=== PATIENT | female | born 1940 | race Caucasian/White ===

== ENCOUNTER 2019-03-07 11:21 | Emergency (ER) | payer MEDICARE, BC ==
[2019-03-07 11:34] VITALS: BP 150/56
--- NOTE | 2019-03-07 11:58 | EDM.PDOC ---
ED HPI GENERAL MEDICAL PROBLEM - General Chief Complaint: Upper Extremity Injury/Pain Stated Complaint: POST SURGERY LT WRIST PAIN Time Seen by Provider: 03/07/19 11:31 Source of Information: Reports: Patient History Limitations: Reports: No Limitations - History of Present Illness INITIAL COMMENTS - FREE TEXT/NARRATIVE: 78 y.o.w.f came to te ed due to pain at her left wrist and fingers 1-3. Pt underwent left wrist surgery last Friday due to Carpal Tunnel Symptoms. 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 No new trauma. Pt came to the ed for wound check. No N/V/D or any other acute medical issues. BP 150/56 Pulse 66 RR 14 Pulse ox 100% Temp 36.4 Onset Date: 02/26/19 Onset Time: 15:00 Duration: Day(s):, Intermittent Location: Reports: Upper Extremity, Left (wrist) Quality: Reports: Dull, Same as Previous Episode Severity: Mild Improves with: Reports: Rest Worsens with: Reports: Movement Context: Reports: Trauma (S/P Carpal tunnel Surgery) Associated Symptoms: Reports: No Other Symptoms left hand Pain Score (Numeric/FACES): 8 - Related Data Allergies Allergy/AdvReac Type Severity Reaction Status Date / Time No Known Allergies Allergy Verified 03/07/19 11:36 Home Meds: Home Meds Levothyroxine Sodium [Synthroid] 137 mcg PO DAILY 03/07/19 [History] cycloSPORINE [Restasis] 1 drop EYEBOTH BID PRN 03/07/19 [History] Social & Family History - Tobacco Use Smoking Status *Q: Never Smoker - Recreational Drug Use Recreational Drug Use: No Review of Systems - Review of Systems Review Of Systems: See Below Constitutional: Reports: No Symptoms Eyes: Reports: No Symptoms Ears: Reports: No Symptoms Nose: Reports: No Symptoms Mouth/Throat: Reports: No Symptoms Respiratory: Reports: No Symptoms Cardiovascular: Reports: No Symptoms GI/Abdominal: Reports: No Symptoms Genitourinary: Reports: No Symptoms Musculoskeletal: Reports: Other (left wrsit discomfort) Skin: Reports: Wound (surgical scar left wrist) Neurological: Reports: No Symptoms Psychiatric: Reports: No Symptoms ED EXAM, GENERAL - Physical Exam Exam: See Below Exam Limited By: No Limitations General Appearance: Alert, WD/WN, Mild Distress Eye Exam: Bilateral Eye: Normal Inspection Ears: Normal External Exam Ear Exam: Bilateral Ear: Auricle Normal Nose: Normal Inspection Throat/Mouth: Normal Inspection, Normal Lips, Normal Voice, No Airway Compromise Head: Atraumatic, Normocephalic Neck: Normal Inspection, Supple, Non-Tender, Full Range of Motion Respiratory/Chest: No Respiratory Distress, Lungs Clear, Normal Breath Sounds, No Accessory Muscle Use, Chest Non-Tender Cardiovascular: Normal Peripheral Pulses, Regular Rate, Rhythm, No Edema, No Gallop Peripheral Pulses: 1+: Brachial (L) GI/Abdominal: Normal Bowel Sounds (Female) Exam: Deferred Rectal (Female) Exam: Deferred Back Exam: Normal Inspection, Full Range of Motion Extremities: Normal Inspection, Non-Tender, No Pedal Edema, Normal Capillary Refill, Limited Range of Motion (left wrist due to pain S/P Surgery) Neurological: Alert, Oriented, CN II-XII Intact, Normal Cognition, Normal Gait Psychiatric: Normal Affect, Normal Mood Skin Exam: Warm, Dry, Wound/Incision (well healing surgical scar) Lymphatic: No Adenopathy Course - Vital Signs Text/Narrative:: 78 y.o.w.f came to te ed due to pain at her left wrist and fingers 1-3. Pt underwent left wrist surgery last Friday due to Carpal Tunnel Symptoms. 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 No new trauma. Pt came to the ed for wound check. No N/V/D or any other acute medical issues. BP 150/56 Pulse 66 RR 14 Pulse ox 100% Temp 36.4 PE: WNWD W F with left wrist discomfort after surgery, well healing wound, no erythema, no edema/selling. Same as it was before Surgery, not worse not better Impression: Wound check left wrist, well healing wound Tx: ICe. Pt said she can take Advil at home. Reexam: Pt did fine in the ED Plan: D/C with instructions Last Recorded V/S: Last Vital Signs Temp 36.4 C 03/07/19 11:29 Pulse 66 03/07/19 11:29 Resp 14 03/07/19 11:29 BP 150/56 H 03/07/19 11:29 Pulse Ox 100 03/07/19 11:29 Departure - Departure Time of Disposition: 11:55 Disposition: Home, Self-Care 01 Condition: Good Clinical Impression: Visit for wound check - Discharge Information Instructions: Open Carpal Tunnel Release, Care After Referrals: Fco Garcia MD [Primary Care Provider] - Forms: ED Department Discharge Additional Instructions: Please elevate left wrist, cont your meds, please f/u with Dr. Titus, please come back if your symptoms get worse acutely
== END 2019-03-07 12:00 | disposition home or self-care (01) ==
LOC: FB.ED 11:21
DX: Z48.811 Encounter for surgical aftercare following surgery on the nervous system (principal); Z98.890 Other specified postprocedural states
CPT/HCPCS: 99282

== ENCOUNTER 2022-04-22 08:41 | Emergency (ER) | payer MEDICARE, BC ==
[2022-04-22] MEDS ORDERED: Sodium Chloride 0.9% 10 ML Syringe FLUSH PRN (09:31)
[2022-04-22] MEDS ORDERED: traMADol 50 MG Tab PO STA (09:36)
[2022-04-22] MEDS ORDERED: Acetaminophen 500 MG Tab PO ONE ×2 (09:36→21:53)
[2022-04-22] MEDS ORDERED: Sodium Chloride 0.9% 1,000 ML IV SCH (09:45)
[2022-04-22 11:01] LABS: ESTIMATED GFR 33 (>60)
[2022-04-22 13:41] VITALS: BP 169/65; PULSE 79
[2022-04-22] MEDS ORDERED: Aspirin 81 MG Tab.Chew PO ONE (14:39)
== END 2022-04-22 22:00 ==
LOC: FB.ED 08:41
DX: R53.1 Weakness (principal); R77.8 Other specified abnormalities of plasma proteins; Z79.899 Other long term (current) drug therapy; Z79.82 Long term (current) use of aspirin
CPT/HCPCS: 36415; 70450; 71045; 72072; 72100; 73502; 80053; 81001; 82550; 84443; 84484; 85025; 93005; 96360; 99285; A9270; J3490; J7030; 93010; 99284

== ENCOUNTER 2022-04-25 10:43 | Inpatient (IN) | payer MEDICARE, BC ==
[2022-04-29] MEDS ORDERED: Ibuprofen 200 MG Tab PO SCH (15:00)
[2022-04-29] MEDS ORDERED: Benzocaine/Cetylpyridinium/Menthol Lozenge MUCMEM PRN (16:10)
[2022-04-29] MEDS ORDERED: oxyCODONE 5 MG Tab PO PRN (16:49)
[2022-04-29] MEDS: Gabapentin 300 MG Cap PO SCH ×2 (17:29→22:08)
[2022-04-29] MEDS: Acetaminophen 500 MG Tab PO SCH ×2 (17:29→21:58)
[2022-04-29] MEDS: Ibuprofen 400 MG Tab PO SCH ×2 (17:32→21:57)
[2022-04-29] MEDS: Sodium Bicarbonate 650 MG Tab PO SCH (21:57)
[2022-04-29] MEDS: Polyvinyl Alcohol 1.4% Ophth Soln 15 ML Bottle EYEBOTH SCH (21:58)
[2022-04-29] MEDS: Metoprolol Succinate 25 MG Tab.ER PO SCH (21:59)
[2022-04-30] MEDS: Polyvinyl Alcohol 1.4% Ophth Soln 15 ML Bottle EYEBOTH SCH ×2 (08:56→21:31)
[2022-04-30] MEDS: Aspirin 81 MG Tab.EC PO SCH (08:56)
[2022-04-30] MEDS: Ibuprofen 400 MG Tab PO SCH ×3 (08:57→21:31)
[2022-04-30] MEDS: Lisinopril 5 MG Tab PO SCH (08:58)
[2022-04-30] MEDS: Gabapentin 300 MG Cap PO SCH ×2 (08:58→14:19)
[2022-04-30] MEDS: Multivitamins with Iron/Calcium/Folic Acid/Minerals Tab PO SCH (08:59)
[2022-04-30] MEDS: Sodium Bicarbonate 650 MG Tab PO SCH ×3 (08:59→21:33)
[2022-04-30] MEDS: Acetaminophen 500 MG Tab PO SCH ×3 (09:00→21:33)
[2022-04-30] MEDS: Cholecalciferol (Vitamin D3) 25 MCG Tab PO SCH (09:01)
[2022-04-30] MEDS: Cyanocobalamin (Vitamin B12) 1,000 MCG Tab PO SCH (09:01)
[2022-04-30] MEDS: Lidocaine 4% 1 each Patch TOP SCH (09:16)
[2022-04-30] MEDS ORDERED: traMADol 50 MG Tab PO PRN (14:08)
[2022-04-30] MEDS: Gabapentin 100 MG Cap PO SCH ×2 (14:19→21:32)
[2022-04-30] MEDS: Metoprolol Succinate 25 MG Tab.ER PO SCH (21:33)
[2022-05-01] MEDS: Aspirin 81 MG Tab.EC PO SCH (08:53)
[2022-05-01] MEDS: Polyvinyl Alcohol 1.4% Ophth Soln 15 ML Bottle EYEBOTH SCH ×2 (08:53→20:50)
[2022-05-01] MEDS: Lidocaine 4% 1 each Patch TOP SCH (08:53)
[2022-05-01] MEDS: Ibuprofen 400 MG Tab PO SCH ×3 (08:54→20:51)
[2022-05-01] MEDS: Lisinopril 5 MG Tab PO SCH (08:54)
[2022-05-01] MEDS: Sodium Bicarbonate 650 MG Tab PO SCH ×3 (08:54→20:53)
[2022-05-01] MEDS: Acetaminophen 500 MG Tab PO SCH ×3 (08:55→20:54)
[2022-05-01] MEDS: Cyanocobalamin (Vitamin B12) 1,000 MCG Tab PO SCH (08:55)
[2022-05-01] MEDS: Cholecalciferol (Vitamin D3) 25 MCG Tab PO SCH (08:55)
[2022-05-01] MEDS: Multivitamins with Iron/Calcium/Folic Acid/Minerals Tab PO SCH (08:55)
[2022-05-01] MEDS: Gabapentin 100 MG Cap PO SCH ×3 (09:03→20:58)
[2022-05-01] MEDS ORDERED: traMADol 50 MG Tab PO PRN (10:00)
[2022-05-01] MEDS: traMADol 50 MG Tab PO SCH ×2 (10:33→13:00)
[2022-05-01] MEDS: Metoprolol Succinate 25 MG Tab.ER PO SCH (20:53)
[2022-05-02] MEDS: traMADol 50 MG Tab PO SCH ×2 (08:17→13:06)
[2022-05-02] MEDS: Polyvinyl Alcohol 1.4% Ophth Soln 15 ML Bottle EYEBOTH SCH ×2 (08:20→20:44)
[2022-05-02] MEDS: Lidocaine 4% 1 each Patch TOP SCH (08:20)
[2022-05-02] MEDS: Aspirin 81 MG Tab.EC PO SCH (08:20)
[2022-05-02] MEDS: Lisinopril 5 MG Tab PO SCH (08:21)
[2022-05-02] MEDS: Ibuprofen 400 MG Tab PO SCH ×3 (08:21→20:45)
[2022-05-02] MEDS: Sodium Bicarbonate 650 MG Tab PO SCH ×3 (08:22→20:49)
[2022-05-02] MEDS: Acetaminophen 500 MG Tab PO SCH ×3 (08:22→20:50)
[2022-05-02] MEDS: Multivitamins with Iron/Calcium/Folic Acid/Minerals Tab PO SCH (08:22)
[2022-05-02] MEDS: Cholecalciferol (Vitamin D3) 25 MCG Tab PO SCH (08:29)
[2022-05-02] MEDS: Cyanocobalamin (Vitamin B12) 1,000 MCG Tab PO SCH (08:29)
[2022-05-02] MEDS: Gabapentin 100 MG Cap PO SCH ×3 (10:20→20:56)
[2022-05-02] MEDS: Metoprolol Succinate 25 MG Tab.ER PO SCH (20:49)
[2022-05-03] MEDS: Gabapentin 100 MG Cap PO SCH ×3 (08:09→21:02)
[2022-05-03] MEDS: traMADol 50 MG Tab PO SCH ×2 (08:09→14:16)
[2022-05-03] MEDS: Ibuprofen 400 MG Tab PO SCH ×3 (08:10→20:52)
[2022-05-03] MEDS: Acetaminophen 500 MG Tab PO SCH ×3 (08:10→20:55)
[2022-05-03] MEDS: Polyvinyl Alcohol 1.4% Ophth Soln 15 ML Bottle EYEBOTH SCH ×2 (08:10→20:52)
[2022-05-03] MEDS: Lidocaine 4% 1 each Patch TOP SCH (08:10)
[2022-05-03] MEDS: Aspirin 81 MG Tab.EC PO SCH (08:10)
[2022-05-03] MEDS: Sodium Bicarbonate 650 MG Tab PO SCH ×3 (08:11→20:54)
[2022-05-03] MEDS: Lisinopril 5 MG Tab PO SCH (08:11)
[2022-05-03] MEDS: Multivitamins with Iron/Calcium/Folic Acid/Minerals Tab PO SCH (08:11)
[2022-05-03] MEDS: Cyanocobalamin (Vitamin B12) 1,000 MCG Tab PO SCH (08:11)
[2022-05-03] MEDS: Cholecalciferol (Vitamin D3) 25 MCG Tab PO SCH (08:11)
[2022-05-03] MEDS: Metoprolol Succinate 25 MG Tab.ER PO SCH (20:57)
[2022-05-04] MEDS: Cholecalciferol (Vitamin D3) 25 MCG Tab PO SCH (08:36)
[2022-05-04] MEDS: Lidocaine 4% 1 each Patch TOP SCH (08:36)
[2022-05-04] MEDS: traMADol 50 MG Tab PO SCH ×2 (08:36→13:08)
[2022-05-04] MEDS: Cyanocobalamin (Vitamin B12) 1,000 MCG Tab PO SCH (08:36)
[2022-05-04] MEDS: Multivitamins with Iron/Calcium/Folic Acid/Minerals Tab PO SCH (08:36)
[2022-05-04] MEDS: Aspirin 81 MG Tab.EC PO SCH (08:36)
[2022-05-04] MEDS: Ibuprofen 400 MG Tab PO SCH ×3 (08:36→20:49)
[2022-05-04] MEDS: Gabapentin 100 MG Cap PO SCH ×3 (08:36→21:16)
[2022-05-04] MEDS: Polyvinyl Alcohol 1.4% Ophth Soln 15 ML Bottle EYEBOTH SCH ×2 (08:36→20:48)
[2022-05-04] MEDS: Sodium Bicarbonate 650 MG Tab PO SCH ×3 (08:37→20:51)
[2022-05-04] MEDS: Acetaminophen 500 MG Tab PO SCH ×3 (08:37→20:51)
[2022-05-04] MEDS: Lisinopril 5 MG Tab PO SCH (08:37)
[2022-05-04] MEDS: fentaNYL 12 MCG/HR Transdermal Patch TRDERM SCH (11:00)
[2022-05-04] MEDS: Metoprolol Succinate 25 MG Tab.ER PO SCH (21:16)
[2022-05-05] MEDS: Gabapentin 100 MG Cap PO SCH ×3 (08:26→21:22)
[2022-05-05] MEDS: Lidocaine 4% 1 each Patch TOP SCH (08:27)
[2022-05-05] MEDS: traMADol 50 MG Tab PO SCH ×2 (08:27→12:50)
[2022-05-05] MEDS: Polyvinyl Alcohol 1.4% Ophth Soln 15 ML Bottle EYEBOTH SCH ×2 (08:28→21:23)
[2022-05-05] MEDS: Multivitamins with Iron/Calcium/Folic Acid/Minerals Tab PO SCH (08:28)
[2022-05-05] MEDS: Acetaminophen 500 MG Tab PO SCH ×3 (08:28→21:24)
[2022-05-05] MEDS: Sodium Bicarbonate 650 MG Tab PO SCH ×3 (08:28→21:24)
[2022-05-05] MEDS: Aspirin 81 MG Tab.EC PO SCH (08:28)
[2022-05-05] MEDS: Cyanocobalamin (Vitamin B12) 1,000 MCG Tab PO SCH (08:28)
[2022-05-05] MEDS: Ibuprofen 400 MG Tab PO SCH ×3 (08:28→21:23)
[2022-05-05] MEDS: Lisinopril 5 MG Tab PO SCH (08:29)
[2022-05-05] MEDS: Cholecalciferol (Vitamin D3) 25 MCG Tab PO SCH (08:29)
[2022-05-05] MEDS: Magnesium Hydroxide 400 MG/5 ML Susp 30 ML Cup PO PRN (13:13)
[2022-05-05] MEDS: Metoprolol Succinate 25 MG Tab.ER PO SCH (21:26)
[2022-05-06] MEDS: Lidocaine 4% 1 each Patch TOP SCH (08:19)
[2022-05-06] MEDS: traMADol 50 MG Tab PO SCH ×2 (08:19→13:42)
[2022-05-06] MEDS: Gabapentin 100 MG Cap PO SCH ×3 (08:19→20:30)
[2022-05-06] MEDS: Aspirin 81 MG Tab.EC PO SCH (08:20)
[2022-05-06] MEDS: Polyvinyl Alcohol 1.4% Ophth Soln 15 ML Bottle EYEBOTH SCH ×2 (08:20→20:27)
[2022-05-06] MEDS: Cyanocobalamin (Vitamin B12) 1,000 MCG Tab PO SCH (08:20)
[2022-05-06] MEDS: Multivitamins with Iron/Calcium/Folic Acid/Minerals Tab PO SCH (08:20)
[2022-05-06] MEDS: Sodium Bicarbonate 650 MG Tab PO SCH ×3 (08:20→20:30)
[2022-05-06] MEDS: Lisinopril 5 MG Tab PO SCH (08:20)
[2022-05-06] MEDS: Cholecalciferol (Vitamin D3) 25 MCG Tab PO SCH (08:20)
[2022-05-06] MEDS: Ibuprofen 400 MG Tab PO SCH ×3 (08:20→20:28)
[2022-05-06] MEDS: Acetaminophen 500 MG Tab PO SCH ×3 (08:20→20:30)
[2022-05-06] MEDS: Metoprolol Succinate 25 MG Tab.ER PO SCH (20:31)
[2022-05-07] MEDS: Multivitamins with Iron/Calcium/Folic Acid/Minerals Tab PO SCH (08:40)
[2022-05-07] MEDS: Sodium Bicarbonate 650 MG Tab PO SCH ×3 (08:40→20:20)
[2022-05-07] MEDS: Polyvinyl Alcohol 1.4% Ophth Soln 15 ML Bottle EYEBOTH SCH ×2 (08:41→20:16)
[2022-05-07] MEDS: Aspirin 81 MG Tab.EC PO SCH (08:41)
[2022-05-07] MEDS: Lidocaine 4% 1 each Patch TOP SCH (08:41)
[2022-05-07] MEDS: Ibuprofen 400 MG Tab PO SCH ×3 (08:43→20:17)
[2022-05-07] MEDS: Cholecalciferol (Vitamin D3) 25 MCG Tab PO SCH (08:45)
[2022-05-07] MEDS: Cyanocobalamin (Vitamin B12) 1,000 MCG Tab PO SCH (08:45)
[2022-05-07] MEDS: Acetaminophen 500 MG Tab PO SCH ×3 (08:45→20:20)
[2022-05-07] MEDS: traMADol 50 MG Tab PO SCH ×2 (08:48→12:59)
[2022-05-07] MEDS: Gabapentin 100 MG Cap PO SCH ×3 (08:49→20:24)
[2022-05-07] MEDS: Lisinopril 5 MG Tab PO SCH (08:52)
[2022-05-07 09:22] LABS: ESTIMATED GFR 30 mL/min (>60)
[2022-05-07] MEDS: Sennosides 8.6 MG Tab PO SCH ×2 (09:48→20:20)
[2022-05-07] MEDS: fentaNYL 12 MCG/HR Transdermal Patch TRDERM SCH (10:21)
[2022-05-08] MEDS: traMADol 50 MG Tab PO SCH ×2 (09:30→13:20)
[2022-05-08] MEDS: Gabapentin 100 MG Cap PO SCH ×3 (09:31→20:08)
[2022-05-08] MEDS: Lidocaine 4% 1 each Patch TOP SCH (09:33)
[2022-05-08] MEDS: Aspirin 81 MG Tab.EC PO SCH (09:34)
[2022-05-08] MEDS: Ibuprofen 400 MG Tab PO SCH ×3 (09:35→20:14)
[2022-05-08] MEDS: Sodium Bicarbonate 650 MG Tab PO SCH ×3 (09:35→20:06)
[2022-05-08] MEDS: Cholecalciferol (Vitamin D3) 25 MCG Tab PO SCH (09:36)
[2022-05-08] MEDS: Cyanocobalamin (Vitamin B12) 1,000 MCG Tab PO SCH (09:36)
[2022-05-08] MEDS: Multivitamins with Iron/Calcium/Folic Acid/Minerals Tab PO SCH (09:36)
[2022-05-08] MEDS: Acetaminophen 500 MG Tab PO SCH ×3 (09:36→20:06)
[2022-05-08] MEDS: Sennosides 8.6 MG Tab PO SCH ×2 (09:37→20:05)
[2022-05-08] MEDS: Polyvinyl Alcohol 1.4% Ophth Soln 15 ML Bottle EYEBOTH SCH ×2 (09:41→20:00)
[2022-05-08] MEDS: Lisinopril 5 MG Tab PO SCH (09:41)
[2022-05-08] MEDS: Metoprolol Succinate 25 MG Tab.ER PO SCH (21:23)
[2022-05-09] MEDS: traMADol 50 MG Tab PO SCH ×2 (08:00→13:36)
[2022-05-09] MEDS: Gabapentin 100 MG Cap PO SCH ×3 (08:00→20:20)
[2022-05-09] MEDS: Acetaminophen 500 MG Tab PO SCH ×3 (08:01→20:22)
[2022-05-09] MEDS: Aspirin 81 MG Tab.EC PO SCH (08:01)
[2022-05-09] MEDS: Cholecalciferol (Vitamin D3) 25 MCG Tab PO SCH (08:02)
[2022-05-09] MEDS: Ibuprofen 400 MG Tab PO SCH ×3 (08:03→20:20)
[2022-05-09] MEDS: Multivitamins with Iron/Calcium/Folic Acid/Minerals Tab PO SCH (08:03)
[2022-05-09] MEDS: Sodium Bicarbonate 650 MG Tab PO SCH ×3 (08:04→20:22)
[2022-05-09] MEDS: Sennosides 8.6 MG Tab PO SCH ×2 (08:05→20:23)
[2022-05-09] MEDS: Lisinopril 5 MG Tab PO SCH (08:08)
[2022-05-09] MEDS: Lidocaine 4% 1 each Patch TOP SCH (08:09)
[2022-05-09] MEDS: Polyvinyl Alcohol 1.4% Ophth Soln 15 ML Bottle EYEBOTH SCH ×2 (08:10→20:20)
[2022-05-09] MEDS: Cyanocobalamin (Vitamin B12) 1,000 MCG Tab PO SCH (08:10)
[2022-05-09] MEDS: Metoprolol Succinate 25 MG Tab.ER PO SCH (20:22)
[2022-05-10] MEDS: traMADol 50 MG Tab PO SCH ×2 (08:39→13:06)
[2022-05-10] MEDS: Gabapentin 100 MG Cap PO SCH ×3 (08:42→20:17)
[2022-05-10] MEDS: Lidocaine 4% 1 each Patch TOP SCH (08:43)
[2022-05-10] MEDS: Multivitamins with Iron/Calcium/Folic Acid/Minerals Tab PO SCH (08:43)
[2022-05-10] MEDS: Polyvinyl Alcohol 1.4% Ophth Soln 15 ML Bottle EYEBOTH SCH ×2 (08:44→20:16)
[2022-05-10] MEDS: Aspirin 81 MG Tab.EC PO SCH (08:44)
[2022-05-10] MEDS: Sennosides 8.6 MG Tab PO SCH ×2 (08:44→20:17)
[2022-05-10] MEDS: Ibuprofen 400 MG Tab PO SCH ×3 (08:45→20:17)
[2022-05-10] MEDS: Lisinopril 5 MG Tab PO SCH (08:46)
[2022-05-10] MEDS: Sodium Bicarbonate 650 MG Tab PO SCH ×3 (08:46→20:17)
[2022-05-10] MEDS: Acetaminophen 500 MG Tab PO SCH ×3 (08:47→20:18)
[2022-05-10] MEDS: Cyanocobalamin (Vitamin B12) 1,000 MCG Tab PO SCH (08:49)
[2022-05-10] MEDS: Cholecalciferol (Vitamin D3) 25 MCG Tab PO SCH (08:49)
[2022-05-10] MEDS: fentaNYL 12 MCG/HR Transdermal Patch TRDERM SCH (10:52)
[2022-05-10] MEDS: Metoprolol Succinate 25 MG Tab.ER PO SCH (21:56)
[2022-05-11] MEDS: traMADol 50 MG Tab PO SCH ×2 (08:19→13:36)
[2022-05-11] MEDS: Lidocaine 4% 1 each Patch TOP SCH (08:20)
[2022-05-11] MEDS: Gabapentin 100 MG Cap PO SCH ×3 (08:21→20:06)
[2022-05-11] MEDS: Polyvinyl Alcohol 1.4% Ophth Soln 15 ML Bottle EYEBOTH SCH ×2 (08:21→20:06)
[2022-05-11] MEDS: Aspirin 81 MG Tab.EC PO SCH (08:22)
[2022-05-11] MEDS: Lisinopril 5 MG Tab PO SCH (08:23)
[2022-05-11] MEDS: Multivitamins with Iron/Calcium/Folic Acid/Minerals Tab PO SCH (08:24)
[2022-05-11] MEDS: Sodium Bicarbonate 650 MG Tab PO SCH ×3 (08:24→20:06)
[2022-05-11] MEDS: Sennosides 8.6 MG Tab PO SCH ×2 (08:24→20:07)
[2022-05-11] MEDS: Cholecalciferol (Vitamin D3) 25 MCG Tab PO SCH (08:25)
[2022-05-11] MEDS: Acetaminophen 500 MG Tab PO SCH ×3 (08:26→20:07)
[2022-05-11] MEDS: Cyanocobalamin (Vitamin B12) 1,000 MCG Tab PO SCH (08:26)
[2022-05-11] MEDS: Ibuprofen 400 MG Tab PO SCH ×3 (08:28→20:06)
[2022-05-11] MEDS: Metoprolol Succinate 25 MG Tab.ER PO SCH (20:07)
[2022-05-12] MEDS: traMADol 50 MG Tab PO SCH ×2 (07:49→13:17)
[2022-05-12] MEDS: Sennosides 8.6 MG Tab PO SCH ×2 (08:13→21:13)
[2022-05-12] MEDS: Gabapentin 100 MG Cap PO SCH ×3 (08:13→21:13)
[2022-05-12] MEDS: Ibuprofen 400 MG Tab PO SCH ×3 (08:14→21:13)
[2022-05-12] MEDS: Acetaminophen 500 MG Tab PO SCH ×3 (08:20→21:13)
[2022-05-12] MEDS: Sodium Bicarbonate 650 MG Tab PO SCH ×3 (08:21→21:13)
[2022-05-12] MEDS: Multivitamins with Iron/Calcium/Folic Acid/Minerals Tab PO SCH (08:21)
[2022-05-12] MEDS: Polyvinyl Alcohol 1.4% Ophth Soln 15 ML Bottle EYEBOTH SCH ×2 (08:22→21:12)
[2022-05-12] MEDS: Lidocaine 4% 1 each Patch TOP SCH (08:22)
[2022-05-12] MEDS: Aspirin 81 MG Tab.EC PO SCH (08:22)
[2022-05-12] MEDS: Cyanocobalamin (Vitamin B12) 1,000 MCG Tab PO SCH (08:24)
[2022-05-12] MEDS: Cholecalciferol (Vitamin D3) 25 MCG Tab PO SCH (08:25)
[2022-05-12] MEDS: Lisinopril 5 MG Tab PO SCH (13:17)
[2022-05-12] MEDS: Metoprolol Succinate 25 MG Tab.ER PO SCH (21:13)
[2022-05-13] MEDS: traMADol 50 MG Tab PO SCH ×2 (07:42→13:39)
[2022-05-13] MEDS: Multivitamins with Iron/Calcium/Folic Acid/Minerals Tab PO SCH (09:47)
[2022-05-13] MEDS: Aspirin 81 MG Tab.EC PO SCH (09:47)
[2022-05-13] MEDS: Lidocaine 4% 1 each Patch TOP SCH (09:47)
[2022-05-13] MEDS: Cyanocobalamin (Vitamin B12) 1,000 MCG Tab PO SCH (09:47)
[2022-05-13] MEDS: Ibuprofen 400 MG Tab PO SCH ×3 (09:47→20:47)
[2022-05-13] MEDS: Sodium Bicarbonate 650 MG Tab PO SCH ×3 (09:47→20:49)
[2022-05-13] MEDS: Acetaminophen 500 MG Tab PO SCH ×3 (09:47→20:48)
[2022-05-13] MEDS: Lisinopril 5 MG Tab PO SCH (09:48)
[2022-05-13] MEDS: Sennosides 8.6 MG Tab PO SCH ×2 (09:48→20:51)
[2022-05-13] MEDS: Polyvinyl Alcohol 1.4% Ophth Soln 15 ML Bottle EYEBOTH SCH ×2 (09:48→20:45)
[2022-05-13] MEDS: Cholecalciferol (Vitamin D3) 25 MCG Tab PO SCH (09:49)
[2022-05-13] MEDS: Gabapentin 100 MG Cap PO SCH ×3 (09:50→20:54)
[2022-05-13] MEDS: fentaNYL 12 MCG/HR Transdermal Patch TRDERM SCH (09:55)
[2022-05-13] MEDS: Metoprolol Succinate 25 MG Tab.ER PO SCH (20:49)
[2022-05-14] MEDS: traMADol 50 MG Tab PO SCH (08:22)
[2022-05-14] MEDS: Gabapentin 100 MG Cap PO SCH ×3 (08:23→20:01)
[2022-05-14] MEDS: Polyvinyl Alcohol 1.4% Ophth Soln 15 ML Bottle EYEBOTH SCH ×2 (08:24→20:00)
[2022-05-14] MEDS: Ibuprofen 400 MG Tab PO SCH (08:24)
[2022-05-14] MEDS: Multivitamins with Iron/Calcium/Folic Acid/Minerals Tab PO SCH (08:26)
[2022-05-14] MEDS: Acetaminophen 500 MG Tab PO SCH ×3 (08:26→20:00)
[2022-05-14] MEDS: Cholecalciferol (Vitamin D3) 25 MCG Tab PO SCH (08:26)
[2022-05-14] MEDS: Lisinopril 5 MG Tab PO SCH (08:27)
[2022-05-14] MEDS: Sennosides 8.6 MG Tab PO SCH ×2 (08:27→20:00)
[2022-05-14] MEDS: Aspirin 81 MG Tab.EC PO SCH (08:27)
[2022-05-14] MEDS: Cyanocobalamin (Vitamin B12) 1,000 MCG Tab PO SCH (08:27)
[2022-05-14] MEDS: Lidocaine 4% 1 each Patch TOP SCH (08:28)
[2022-05-14] MEDS: Sodium Bicarbonate 650 MG Tab PO SCH ×3 (08:37→20:00)
[2022-05-14] MEDS: traMADol 50 MG Tab PO PRN (16:46)
[2022-05-14] MEDS: Metoprolol Succinate 25 MG Tab.ER PO SCH (20:01)
[2022-05-15] MEDS: Aspirin 81 MG Tab.EC PO SCH (08:45)
[2022-05-15] MEDS: Gabapentin 100 MG Cap PO SCH ×3 (08:45→20:35)
[2022-05-15] MEDS: Polyvinyl Alcohol 1.4% Ophth Soln 15 ML Bottle EYEBOTH SCH ×2 (08:45→20:29)
[2022-05-15] MEDS: Sodium Bicarbonate 650 MG Tab PO SCH ×3 (08:46→20:31)
[2022-05-15] MEDS: Cholecalciferol (Vitamin D3) 25 MCG Tab PO SCH (08:46)
[2022-05-15] MEDS: Multivitamins with Iron/Calcium/Folic Acid/Minerals Tab PO SCH (08:46)
[2022-05-15] MEDS: Cyanocobalamin (Vitamin B12) 1,000 MCG Tab PO SCH (08:46)
[2022-05-15] MEDS: Acetaminophen 500 MG Tab PO SCH ×3 (08:46→20:32)
[2022-05-15] MEDS: Lisinopril 5 MG Tab PO SCH (08:46)
[2022-05-15] MEDS: Lidocaine 4% 1 each Patch TOP SCH (08:47)
[2022-05-15] MEDS: Sennosides 8.6 MG Tab PO SCH ×2 (08:47→20:31)
[2022-05-15] MEDS: traMADol 50 MG Tab PO PRN (10:53)
[2022-05-15] MEDS: Ibuprofen 400 MG Tab PO PRN (12:54)
[2022-05-15] MEDS: Metoprolol Succinate 25 MG Tab.ER PO SCH (20:31)
[2022-05-16] MEDS: Polyvinyl Alcohol 1.4% Ophth Soln 15 ML Bottle EYEBOTH SCH ×2 (08:50→20:52)
[2022-05-16] MEDS: Gabapentin 100 MG Cap PO SCH ×3 (08:51→20:53)
[2022-05-16] MEDS: Cyanocobalamin (Vitamin B12) 1,000 MCG Tab PO SCH (08:52)
[2022-05-16] MEDS: Sennosides 8.6 MG Tab PO SCH ×2 (08:52→20:54)
[2022-05-16] MEDS: Cholecalciferol (Vitamin D3) 25 MCG Tab PO SCH (08:52)
[2022-05-16] MEDS: Acetaminophen 500 MG Tab PO SCH ×3 (08:52→20:53)
[2022-05-16] MEDS: Sodium Bicarbonate 650 MG Tab PO SCH ×3 (08:52→20:56)
[2022-05-16] MEDS: Aspirin 81 MG Tab.EC PO SCH (08:53)
[2022-05-16] MEDS: Lisinopril 5 MG Tab PO SCH (08:59)
[2022-05-16] MEDS: Multivitamins with Iron/Calcium/Folic Acid/Minerals Tab PO SCH (09:01)
[2022-05-16] MEDS: Lidocaine 4% 1 each Patch TOP SCH (16:12)
[2022-05-16] MEDS ORDERED: Gabapentin 100 MG Cap ONE (16:14)
[2022-05-16] MEDS: fentaNYL 12 MCG/HR Transdermal Patch TRDERM SCH (16:17)
[2022-05-16] MEDS: Metoprolol Succinate 25 MG Tab.ER PO SCH (20:56)
[2022-05-17] MEDS: Lidocaine 4% 1 each Patch TOP SCH (08:05)
[2022-05-17] MEDS: Aspirin 81 MG Tab.EC PO SCH (08:06)
[2022-05-17] MEDS: Multivitamins with Iron/Calcium/Folic Acid/Minerals Tab PO SCH (08:06)
[2022-05-17] MEDS: Lisinopril 5 MG Tab PO SCH (08:07)
[2022-05-17] MEDS: Gabapentin 100 MG Cap PO SCH ×3 (08:07→21:16)
[2022-05-17] MEDS: Cyanocobalamin (Vitamin B12) 1,000 MCG Tab PO SCH (08:07)
[2022-05-17] MEDS: Polyvinyl Alcohol 1.4% Ophth Soln 15 ML Bottle EYEBOTH SCH ×2 (08:07→21:07)
[2022-05-17] MEDS: Sennosides 8.6 MG Tab PO SCH ×2 (08:07→21:08)
[2022-05-17] MEDS: Cholecalciferol (Vitamin D3) 25 MCG Tab PO SCH (08:07)
[2022-05-17] MEDS: Sodium Bicarbonate 650 MG Tab PO SCH ×3 (08:08→21:08)
[2022-05-17] MEDS: Acetaminophen 500 MG Tab PO SCH ×3 (08:08→21:15)
[2022-05-17] MEDS: Metoprolol Succinate 25 MG Tab.ER PO SCH (21:12)
[2022-05-18] MEDS: Lidocaine 4% 1 each Patch TOP SCH (08:18)
[2022-05-18] MEDS: Aspirin 81 MG Tab.EC PO SCH (08:27)
[2022-05-18] MEDS: Polyvinyl Alcohol 1.4% Ophth Soln 15 ML Bottle EYEBOTH SCH ×2 (08:28→20:44)
[2022-05-18] MEDS: Lisinopril 5 MG Tab PO SCH (08:29)
[2022-05-18] MEDS: Acetaminophen 500 MG Tab PO SCH ×3 (08:32→20:46)
[2022-05-18] MEDS: Cyanocobalamin (Vitamin B12) 1,000 MCG Tab PO SCH (08:33)
[2022-05-18] MEDS: Cholecalciferol (Vitamin D3) 25 MCG Tab PO SCH (08:34)
[2022-05-18] MEDS: Sodium Bicarbonate 650 MG Tab PO SCH ×3 (08:35→20:46)
[2022-05-18] MEDS: Sennosides 8.6 MG Tab PO SCH ×2 (08:35→20:46)
[2022-05-18] MEDS: Multivitamins with Iron/Calcium/Folic Acid/Minerals Tab PO SCH (08:35)
[2022-05-18] MEDS: Gabapentin 100 MG Cap PO SCH ×3 (08:45→20:45)
[2022-05-18] MEDS: Metoprolol Succinate 25 MG Tab.ER PO SCH (20:49)
[2022-05-19] MEDS: Gabapentin 100 MG Cap PO SCH ×3 (09:00→20:21)
[2022-05-19] MEDS: Cholecalciferol (Vitamin D3) 25 MCG Tab PO SCH (09:00)
[2022-05-19] MEDS: Cyanocobalamin (Vitamin B12) 1,000 MCG Tab PO SCH (09:00)
[2022-05-19] MEDS: Sennosides 8.6 MG Tab PO SCH ×2 (09:00→20:22)
[2022-05-19] MEDS: Multivitamins with Iron/Calcium/Folic Acid/Minerals Tab PO SCH (09:01)
[2022-05-19] MEDS: Sodium Bicarbonate 650 MG Tab PO SCH ×3 (09:01→20:23)
[2022-05-19] MEDS: Aspirin 81 MG Tab.EC PO SCH (09:01)
[2022-05-19] MEDS: Acetaminophen 500 MG Tab PO SCH ×3 (09:01→20:25)
[2022-05-19] MEDS: Lidocaine 4% 1 each Patch TOP SCH (09:02)
[2022-05-19] MEDS: Polyvinyl Alcohol 1.4% Ophth Soln 15 ML Bottle EYEBOTH SCH ×2 (09:02→20:21)
[2022-05-19] MEDS: Lisinopril 5 MG Tab PO SCH (09:08)
[2022-05-19] MEDS: fentaNYL 12 MCG/HR Transdermal Patch TRDERM SCH (09:56)
[2022-05-19] MEDS: Metoprolol Succinate 25 MG Tab.ER PO SCH (20:23)
[2022-05-20] MEDS: Aspirin 81 MG Tab.EC PO SCH (08:32)
[2022-05-20] MEDS: Polyvinyl Alcohol 1.4% Ophth Soln 15 ML Bottle EYEBOTH SCH ×2 (08:32→19:59)
[2022-05-20] MEDS: Multivitamins with Iron/Calcium/Folic Acid/Minerals Tab PO SCH (08:33)
[2022-05-20] MEDS: Sennosides 8.6 MG Tab PO SCH ×2 (08:33→20:00)
[2022-05-20] MEDS: Sodium Bicarbonate 650 MG Tab PO SCH ×3 (08:33→20:00)
[2022-05-20] MEDS: Acetaminophen 500 MG Tab PO SCH ×3 (08:34→20:00)
[2022-05-20] MEDS: Cholecalciferol (Vitamin D3) 25 MCG Tab PO SCH (08:35)
[2022-05-20] MEDS: Cyanocobalamin (Vitamin B12) 1,000 MCG Tab PO SCH (08:35)
[2022-05-20] MEDS: Gabapentin 100 MG Cap PO SCH ×3 (08:39→19:59)
[2022-05-20] MEDS: Lidocaine 4% 1 each Patch TOP SCH (08:42)
[2022-05-20] MEDS: Lisinopril 5 MG Tab PO SCH (09:50)
[2022-05-20] MEDS: Ibuprofen 400 MG Tab PO PRN (17:30)
[2022-05-20] MEDS: Metoprolol Succinate 25 MG Tab.ER PO SCH (20:06)
[2022-05-21] MEDS: Aspirin 81 MG Tab.EC PO SCH (08:01)
[2022-05-21] MEDS: Polyvinyl Alcohol 1.4% Ophth Soln 15 ML Bottle EYEBOTH SCH ×2 (08:01→20:12)
[2022-05-21] MEDS: Lisinopril 5 MG Tab PO SCH (08:01)
[2022-05-21] MEDS: Gabapentin 100 MG Cap PO SCH ×3 (08:04→20:14)
[2022-05-21] MEDS: Sennosides 8.6 MG Tab PO SCH ×2 (08:06→20:11)
[2022-05-21] MEDS: Sodium Bicarbonate 650 MG Tab PO SCH ×3 (08:06→20:11)
[2022-05-21] MEDS: Lidocaine 4% 1 each Patch TOP SCH (08:06)
[2022-05-21] MEDS: Multivitamins with Iron/Calcium/Folic Acid/Minerals Tab PO SCH (08:07)
[2022-05-21] MEDS: Acetaminophen 500 MG Tab PO SCH ×3 (08:07→20:11)
[2022-05-21] MEDS: Cyanocobalamin (Vitamin B12) 1,000 MCG Tab PO SCH (08:08)
[2022-05-21] MEDS: Cholecalciferol (Vitamin D3) 25 MCG Tab PO SCH (08:09)
[2022-05-21] MEDS: Metoprolol Succinate 25 MG Tab.ER PO SCH (20:11)
[2022-05-22] MEDS: Gabapentin 100 MG Cap PO SCH ×3 (08:00→20:25)
[2022-05-22] MEDS: Lidocaine 4% 1 each Patch TOP SCH (08:00)
[2022-05-22] MEDS: Acetaminophen 500 MG Tab PO SCH ×3 (08:01→20:30)
[2022-05-22] MEDS: Polyvinyl Alcohol 1.4% Ophth Soln 15 ML Bottle EYEBOTH SCH ×2 (08:11→20:25)
[2022-05-22] MEDS: Cholecalciferol (Vitamin D3) 25 MCG Tab PO SCH (08:11)
[2022-05-22] MEDS: Sennosides 8.6 MG Tab PO SCH ×2 (08:11→20:26)
[2022-05-22] MEDS: Cyanocobalamin (Vitamin B12) 1,000 MCG Tab PO SCH (08:11)
[2022-05-22] MEDS: Aspirin 81 MG Tab.EC PO SCH (08:11)
[2022-05-22] MEDS: Multivitamins with Iron/Calcium/Folic Acid/Minerals Tab PO SCH (08:11)
[2022-05-22] MEDS: Sodium Bicarbonate 650 MG Tab PO SCH ×3 (08:11→20:26)
[2022-05-22] MEDS: Lisinopril 5 MG Tab PO SCH (08:12)
[2022-05-22] MEDS: traMADol 50 MG Tab PO PRN (08:16)
[2022-05-22] MEDS: fentaNYL 12 MCG/HR Transdermal Patch TRDERM SCH (09:30)
[2022-05-22] MEDS: Metoprolol Succinate 25 MG Tab.ER PO SCH (20:27)
[2022-05-23] MEDS: Lidocaine 4% 1 each Patch TOP SCH (08:22)
[2022-05-23] MEDS: Aspirin 81 MG Tab.EC PO SCH (08:23)
[2022-05-23] MEDS: Polyvinyl Alcohol 1.4% Ophth Soln 15 ML Bottle EYEBOTH SCH ×2 (08:24→20:25)
[2022-05-23] MEDS: Lisinopril 5 MG Tab PO SCH (08:24)
[2022-05-23] MEDS: Sodium Bicarbonate 650 MG Tab PO SCH ×3 (08:24→20:26)
[2022-05-23] MEDS: Sennosides 8.6 MG Tab PO SCH ×2 (08:25→20:25)
[2022-05-23] MEDS: Multivitamins with Iron/Calcium/Folic Acid/Minerals Tab PO SCH (08:26)
[2022-05-23] MEDS: Gabapentin 100 MG Cap PO SCH ×3 (08:28→20:25)
[2022-05-23] MEDS: Acetaminophen 500 MG Tab PO SCH ×3 (08:28→20:25)
[2022-05-23] MEDS: Cyanocobalamin (Vitamin B12) 1,000 MCG Tab PO SCH (08:31)
[2022-05-23] MEDS: Cholecalciferol (Vitamin D3) 25 MCG Tab PO SCH (08:31)
[2022-05-23] MEDS: Metoprolol Succinate 25 MG Tab.ER PO SCH (20:25)
[2022-05-24] MEDS: Aspirin 81 MG Tab.EC PO SCH (08:36)
[2022-05-24] MEDS: Lidocaine 4% 1 each Patch TOP SCH (08:36)
[2022-05-24] MEDS: Cyanocobalamin (Vitamin B12) 1,000 MCG Tab PO SCH (08:36)
[2022-05-24] MEDS: Sodium Bicarbonate 650 MG Tab PO SCH ×3 (08:36→20:22)
[2022-05-24] MEDS: Sennosides 8.6 MG Tab PO SCH ×2 (08:36→20:23)
[2022-05-24] MEDS: Multivitamins with Iron/Calcium/Folic Acid/Minerals Tab PO SCH (08:36)
[2022-05-24] MEDS: Cholecalciferol (Vitamin D3) 25 MCG Tab PO SCH (08:36)
[2022-05-24] MEDS: Polyvinyl Alcohol 1.4% Ophth Soln 15 ML Bottle EYEBOTH SCH ×2 (08:37→20:23)
[2022-05-24] MEDS: Lisinopril 5 MG Tab PO SCH (08:37)
[2022-05-24] MEDS: Gabapentin 100 MG Cap PO SCH ×3 (08:37→20:22)
[2022-05-24] MEDS: Acetaminophen 500 MG Tab PO SCH ×3 (08:38→20:22)
[2022-05-24] MEDS: Metoprolol Succinate 25 MG Tab.ER PO SCH (20:23)
[2022-05-25] MEDS: Sennosides 8.6 MG Tab PO SCH ×2 (08:18→20:20)
[2022-05-25] MEDS: Aspirin 81 MG Tab.EC PO SCH (08:18)
[2022-05-25] MEDS: Multivitamins with Iron/Calcium/Folic Acid/Minerals Tab PO SCH (08:18)
[2022-05-25] MEDS: Acetaminophen 500 MG Tab PO SCH ×3 (08:18→20:20)
[2022-05-25] MEDS: Sodium Bicarbonate 650 MG Tab PO SCH ×3 (08:18→20:20)
[2022-05-25] MEDS: Cholecalciferol (Vitamin D3) 25 MCG Tab PO SCH (08:18)
[2022-05-25] MEDS: Gabapentin 100 MG Cap PO SCH ×3 (08:18→20:20)
[2022-05-25] MEDS: Lisinopril 5 MG Tab PO SCH (08:18)
[2022-05-25] MEDS: Lidocaine 4% 1 each Patch TOP SCH (08:19)
[2022-05-25] MEDS: Polyvinyl Alcohol 1.4% Ophth Soln 15 ML Bottle EYEBOTH SCH ×2 (08:19→20:20)
[2022-05-25] MEDS: Cyanocobalamin (Vitamin B12) 1,000 MCG Tab PO SCH (08:19)
[2022-05-25] MEDS: fentaNYL 12 MCG/HR Transdermal Patch TRDERM SCH (09:56)
[2022-05-25] MEDS: Metoprolol Succinate 25 MG Tab.ER PO SCH (20:21)
[2022-05-26] MEDS: Lidocaine 4% 1 each Patch TOP SCH (08:15)
[2022-05-26] MEDS: Cholecalciferol (Vitamin D3) 25 MCG Tab PO SCH (08:15)
[2022-05-26] MEDS: Sennosides 8.6 MG Tab PO SCH ×2 (08:15→20:02)
[2022-05-26] MEDS: Acetaminophen 500 MG Tab PO SCH ×3 (08:15→20:01)
[2022-05-26] MEDS: Lisinopril 2.5 MG Tab PO SCH (08:16)
[2022-05-26] MEDS: Multivitamins with Iron/Calcium/Folic Acid/Minerals Tab PO SCH (08:16)
[2022-05-26] MEDS: Sodium Bicarbonate 650 MG Tab PO SCH ×3 (08:16→20:00)
[2022-05-26] MEDS: Aspirin 81 MG Tab.EC PO SCH (08:16)
[2022-05-26] MEDS: Cyanocobalamin (Vitamin B12) 1,000 MCG Tab PO SCH (08:16)
[2022-05-26] MEDS: Polyvinyl Alcohol 1.4% Ophth Soln 15 ML Bottle EYEBOTH SCH ×2 (08:17→20:00)
[2022-05-26] MEDS: Gabapentin 100 MG Cap PO SCH ×3 (08:19→20:01)
[2022-05-26] MEDS: Metoprolol Succinate 25 MG Tab.ER PO SCH (20:02)
[2022-05-27] MEDS: Sodium Bicarbonate 650 MG Tab PO SCH ×3 (08:16→20:12)
[2022-05-27] MEDS: Gabapentin 100 MG Cap PO SCH ×3 (08:16→20:11)
[2022-05-27] MEDS: Sennosides 8.6 MG Tab PO SCH ×2 (08:17→20:12)
[2022-05-27] MEDS: Lisinopril 2.5 MG Tab PO SCH (08:17)
[2022-05-27] MEDS: Acetaminophen 500 MG Tab PO SCH ×3 (08:17→20:13)
[2022-05-27] MEDS: Polyvinyl Alcohol 1.4% Ophth Soln 15 ML Bottle EYEBOTH SCH ×2 (08:18→20:11)
[2022-05-27] MEDS: Cholecalciferol (Vitamin D3) 25 MCG Tab PO SCH (08:18)
[2022-05-27] MEDS: Multivitamins with Iron/Calcium/Folic Acid/Minerals Tab PO SCH (08:18)
[2022-05-27] MEDS: Cyanocobalamin (Vitamin B12) 1,000 MCG Tab PO SCH (08:18)
[2022-05-27] MEDS: Aspirin 81 MG Tab.EC PO SCH (08:18)
[2022-05-27] MEDS: Lidocaine 4% 1 each Patch TOP SCH (08:19)
[2022-05-27] MEDS: Metoprolol Succinate 25 MG Tab.ER PO SCH (20:13)
[2022-05-28] MEDS: Sodium Bicarbonate 650 MG Tab PO SCH ×3 (08:50→20:18)
[2022-05-28] MEDS: Lidocaine 4% 1 each Patch TOP SCH (08:50)
[2022-05-28] MEDS: Cyanocobalamin (Vitamin B12) 1,000 MCG Tab PO SCH (08:50)
[2022-05-28] MEDS: Multivitamins with Iron/Calcium/Folic Acid/Minerals Tab PO SCH (08:50)
[2022-05-28] MEDS: Polyvinyl Alcohol 1.4% Ophth Soln 15 ML Bottle EYEBOTH SCH ×2 (08:50→20:18)
[2022-05-28] MEDS: Aspirin 81 MG Tab.EC PO SCH (08:51)
[2022-05-28] MEDS: Acetaminophen 500 MG Tab PO SCH ×3 (08:51→20:20)
[2022-05-28] MEDS: Sennosides 8.6 MG Tab PO SCH ×2 (08:51→20:18)
[2022-05-28] MEDS: Cholecalciferol (Vitamin D3) 25 MCG Tab PO SCH (08:51)
[2022-05-28] MEDS: Lisinopril 2.5 MG Tab PO SCH (08:51)
[2022-05-28] MEDS: Gabapentin 100 MG Cap PO SCH ×3 (08:51→20:24)
[2022-05-28] MEDS: fentaNYL 12 MCG/HR Transdermal Patch TRDERM SCH (09:00)
[2022-05-28] MEDS: Metoprolol Succinate 25 MG Tab.ER PO SCH (20:19)
[2022-05-29] MEDS: Lidocaine 4% 1 each Patch TOP SCH (08:15)
[2022-05-29] MEDS: Gabapentin 100 MG Cap PO SCH ×3 (08:17→20:25)
[2022-05-29] MEDS: Aspirin 81 MG Tab.EC PO SCH (08:17)
[2022-05-29] MEDS: Lisinopril 2.5 MG Tab PO SCH (08:17)
[2022-05-29] MEDS: Polyvinyl Alcohol 1.4% Ophth Soln 15 ML Bottle EYEBOTH SCH ×2 (08:17→20:13)
[2022-05-29] MEDS: Acetaminophen 500 MG Tab PO SCH ×3 (08:18→20:15)
[2022-05-29] MEDS: Sennosides 8.6 MG Tab PO SCH ×2 (08:18→20:14)
[2022-05-29] MEDS: Multivitamins with Iron/Calcium/Folic Acid/Minerals Tab PO SCH (08:18)
[2022-05-29] MEDS: Sodium Bicarbonate 650 MG Tab PO SCH ×3 (08:18→20:14)
[2022-05-29] MEDS: Cholecalciferol (Vitamin D3) 25 MCG Tab PO SCH (08:19)
[2022-05-29] MEDS: Cyanocobalamin (Vitamin B12) 1,000 MCG Tab PO SCH (08:19)
[2022-05-29] MEDS ORDERED: traMADol 50 MG Tab PO PRN (10:00)
[2022-05-29] MEDS: Ibuprofen 400 MG Tab PO PRN (18:43)
[2022-05-29] MEDS: traMADol 50 MG Tab PO SCH (20:25)
[2022-05-29] MEDS: Metoprolol Succinate 25 MG Tab.ER PO SCH (20:28)
[2022-05-30] MEDS: Cyanocobalamin (Vitamin B12) 1,000 MCG Tab PO SCH (09:08)
[2022-05-30] MEDS: Multivitamins with Iron/Calcium/Folic Acid/Minerals Tab PO SCH (09:09)
[2022-05-30] MEDS: Sodium Bicarbonate 650 MG Tab PO SCH ×3 (09:09→21:59)
[2022-05-30] MEDS: Sennosides 8.6 MG Tab PO SCH ×2 (09:09→21:32)
[2022-05-30] MEDS: Lisinopril 2.5 MG Tab PO SCH (09:09)
[2022-05-30] MEDS: Aspirin 81 MG Tab.EC PO SCH (09:10)
[2022-05-30] MEDS: Polyvinyl Alcohol 1.4% Ophth Soln 15 ML Bottle EYEBOTH SCH ×2 (09:10→21:31)
[2022-05-30] MEDS: Acetaminophen 500 MG Tab PO SCH ×3 (09:11→21:58)
[2022-05-30] MEDS: Lidocaine 4% 1 each Patch TOP SCH (09:11)
[2022-05-30] MEDS: Cholecalciferol (Vitamin D3) 25 MCG Tab PO SCH (09:12)
[2022-05-30] MEDS: Gabapentin 100 MG Cap PO SCH ×3 (09:19→22:03)
[2022-05-30] MEDS: traMADol 50 MG Tab PO SCH ×2 (10:21→22:03)
[2022-05-30] MEDS: Metoprolol Succinate 25 MG Tab.ER PO SCH (21:32)
[2022-05-31] MEDS: Polyvinyl Alcohol 1.4% Ophth Soln 15 ML Bottle EYEBOTH SCH ×2 (09:15→19:59)
[2022-05-31] MEDS: traMADol 50 MG Tab PO SCH (09:16)
[2022-05-31] MEDS: Cyanocobalamin (Vitamin B12) 1,000 MCG Tab PO SCH (09:16)
[2022-05-31] MEDS: Aspirin 81 MG Tab.EC PO SCH (09:16)
[2022-05-31] MEDS: Sennosides 8.6 MG Tab PO SCH ×2 (09:16→19:59)
[2022-05-31] MEDS: Acetaminophen 500 MG Tab PO SCH ×3 (09:16→20:00)
[2022-05-31] MEDS: Multivitamins with Iron/Calcium/Folic Acid/Minerals Tab PO SCH (09:16)
[2022-05-31] MEDS: Cholecalciferol (Vitamin D3) 25 MCG Tab PO SCH (09:16)
[2022-05-31] MEDS: Sodium Bicarbonate 650 MG Tab PO SCH ×3 (09:17→19:59)
[2022-05-31] MEDS: Lisinopril 2.5 MG Tab PO SCH (09:17)
[2022-05-31] MEDS: Gabapentin 100 MG Cap PO SCH ×3 (09:17→19:59)
[2022-05-31] MEDS: Lidocaine 4% 1 each Patch TOP SCH (09:17)
[2022-05-31] MEDS: Metoprolol Succinate 25 MG Tab.ER PO SCH (20:00)
[2022-06-01] MEDS: Aspirin 81 MG Tab.EC PO SCH (08:18)
[2022-06-01] MEDS: Cholecalciferol (Vitamin D3) 25 MCG Tab PO SCH (08:18)
[2022-06-01] MEDS: Cyanocobalamin (Vitamin B12) 1,000 MCG Tab PO SCH (08:18)
[2022-06-01] MEDS: Multivitamins with Iron/Calcium/Folic Acid/Minerals Tab PO SCH (08:18)
[2022-06-01] MEDS: Sodium Bicarbonate 650 MG Tab PO SCH ×3 (08:18→20:39)
[2022-06-01] MEDS: Sennosides 8.6 MG Tab PO SCH ×2 (08:19→20:39)
[2022-06-01] MEDS: Lisinopril 2.5 MG Tab PO SCH (08:19)
[2022-06-01] MEDS: Polyvinyl Alcohol 1.4% Ophth Soln 15 ML Bottle EYEBOTH SCH ×2 (08:19→20:37)
[2022-06-01] MEDS: Lidocaine 4% 1 each Patch TOP SCH (08:19)
[2022-06-01] MEDS: Gabapentin 100 MG Cap PO SCH ×3 (08:21→20:48)
[2022-06-01] MEDS: Acetaminophen 500 MG Tab PO SCH ×3 (08:23→22:51)
[2022-06-01] MEDS: Magnesium Hydroxide 400 MG/5 ML Susp 30 ML Cup PO PRN (11:19)
[2022-06-01] MEDS: traMADol 50 MG Tab PO PRN (11:19)
[2022-06-01] MEDS: Metoprolol Succinate 25 MG Tab.ER PO SCH (20:39)
[2022-06-02] MEDS: Lisinopril 2.5 MG Tab PO SCH (08:22)
[2022-06-02] MEDS: Cholecalciferol (Vitamin D3) 25 MCG Tab PO SCH (08:22)
[2022-06-02] MEDS: Acetaminophen 500 MG Tab PO SCH ×3 (08:22→21:24)
[2022-06-02] MEDS: Multivitamins with Iron/Calcium/Folic Acid/Minerals Tab PO SCH (08:22)
[2022-06-02] MEDS: Cyanocobalamin (Vitamin B12) 1,000 MCG Tab PO SCH (08:22)
[2022-06-02] MEDS: Sennosides 8.6 MG Tab PO SCH ×2 (08:22→21:24)
[2022-06-02] MEDS: Aspirin 81 MG Tab.EC PO SCH (08:22)
[2022-06-02] MEDS: Sodium Bicarbonate 650 MG Tab PO SCH ×3 (08:22→21:24)
[2022-06-02] MEDS: Gabapentin 100 MG Cap PO SCH ×3 (08:23→21:22)
[2022-06-02] MEDS: Lidocaine 4% 1 each Patch TOP SCH (08:23)
[2022-06-02] MEDS: Polyvinyl Alcohol 1.4% Ophth Soln 15 ML Bottle EYEBOTH SCH ×2 (08:23→21:22)
[2022-06-02] MEDS: traMADol 50 MG Tab PO PRN (18:18)
[2022-06-02] MEDS: Metoprolol Succinate 25 MG Tab.ER PO SCH (21:22)
[2022-06-03] MEDS: Multivitamins with Iron/Calcium/Folic Acid/Minerals Tab PO SCH (08:18)
[2022-06-03] MEDS: Aspirin 81 MG Tab.EC PO SCH (08:18)
[2022-06-03] MEDS: Cholecalciferol (Vitamin D3) 25 MCG Tab PO SCH (08:18)
[2022-06-03] MEDS: Sodium Bicarbonate 650 MG Tab PO SCH ×3 (08:18→21:29)
[2022-06-03] MEDS: Lisinopril 2.5 MG Tab PO SCH (08:18)
[2022-06-03] MEDS: Sennosides 8.6 MG Tab PO SCH ×2 (08:19→21:29)
[2022-06-03] MEDS: Acetaminophen 500 MG Tab PO SCH ×3 (08:19→21:29)
[2022-06-03] MEDS: Polyvinyl Alcohol 1.4% Ophth Soln 15 ML Bottle EYEBOTH SCH ×2 (08:19→21:28)
[2022-06-03] MEDS: Cyanocobalamin (Vitamin B12) 1,000 MCG Tab PO SCH (08:19)
[2022-06-03] MEDS: Gabapentin 100 MG Cap PO SCH ×3 (08:24→21:28)
[2022-06-03] MEDS: traMADol 50 MG Tab PO PRN (08:24)
[2022-06-03] MEDS: Lidocaine 4% 1 each Patch TOP SCH (11:00)
[2022-06-03] MEDS: Metoprolol Succinate 25 MG Tab.ER PO SCH (21:32)
[2022-06-04 06:58] VITALS: PULSE 62
[2022-06-04] MEDS: Lidocaine 4% 1 each Patch TOP SCH (08:18)
[2022-06-04] MEDS: Aspirin 81 MG Tab.EC PO SCH (08:19)
[2022-06-04] MEDS: Polyvinyl Alcohol 1.4% Ophth Soln 15 ML Bottle EYEBOTH SCH (08:19)
[2022-06-04] MEDS: Gabapentin 100 MG Cap PO SCH (08:19)
[2022-06-04] MEDS: Sennosides 8.6 MG Tab PO SCH (08:23)
[2022-06-04] MEDS: Acetaminophen 500 MG Tab PO SCH (08:23)
[2022-06-04] MEDS: Multivitamins with Iron/Calcium/Folic Acid/Minerals Tab PO SCH (08:23)
[2022-06-04] MEDS: Lisinopril 2.5 MG Tab PO SCH (08:23)
[2022-06-04] MEDS: Sodium Bicarbonate 650 MG Tab PO SCH (08:23)
[2022-06-04] MEDS: Cholecalciferol (Vitamin D3) 25 MCG Tab PO SCH (08:25)
[2022-06-04] MEDS: Cyanocobalamin (Vitamin B12) 1,000 MCG Tab PO SCH (08:25)
[2022-06-04 08:26] VITALS: BP 122/50
== END 2022-06-04 10:05 | DRG 947 ==
LOC: FB.MS 04-29 15:29
PROVIDERS: ADMIT Family Medicine; ATTEND Family Medicine
DX: R53.81 Other malaise (principal); I21.A1 Myocardial infarction type 2; E87.1 Hypo-osmolality and hyponatremia; M35.00 Sjogren syndrome, unspecified; M54.42 Lumbago with sciatica, left side; N18.32 Chronic kidney disease, stage 3b; Z20.822 Contact with and (suspected) exposure to COVID-19; M48.061 Spinal stenosis, lumbar region without neurogenic claudication; Z79.82 Long term (current) use of aspirin; Z79.890 Hormone replacement therapy; Z79.899 Other long term (current) drug therapy
CPT/HCPCS: 36415; 72148; 72192; 80048; 81001; 82947; 97110-GO; 97110-GP; 97116-GP; 97129-GO; 97140-GP; 97162-GP; 97166-GO; 97530-GO; 97530-GP; 97535-GO; 99305; 99308; 99316; A9270-GY; U0002

== ENCOUNTER 2022-07-24 09:07 | Emergency (ER) | payer BC, MEDICARE ==
[2022-07-24] MEDS ORDERED: Sodium Chloride 0.9% 10 ML Syringe FLUSH PRN (09:10)
[2022-07-24] MEDS ORDERED: Tranexamic Acid 1,000 MG in Sodium Chloride 0.9% 50 ML IV ONE (09:10)
[2022-07-24 11:10] VITALS: BP 127/61; PULSE 72
== END 2022-07-24 11:35 | disposition home or self-care (01) ==
LOC: FB.ED 09:07
DX: R04.0 Epistaxis (principal); I10 Essential (primary) hypertension; E10.9 Type 1 diabetes mellitus without complications; Z79.899 Other long term (current) drug therapy
CPT/HCPCS: 30901; 96365; 99283; J3490

== ENCOUNTER 2023-01-22 16:20 | Emergency (ER) | payer MEDICARE, MEDICAID ==
[2023-01-22] MEDS ORDERED: Sodium Chloride 0.9% 10 ML Syringe FLUSH PRN (16:37)
[2023-01-22 17:06] LABS: ESTIMATED GFR 35 mL/min (>60)
[2023-01-22] MEDS: Sodium Chloride 0.9% 1,000 ML IV SCH (18:15)
[2023-01-22] MEDS: cefTRIAXone 2 GM Vial IVPUSH STA (18:42)
[2023-01-22 18:48] LABS: CORONAVIRUS COVID-19 NAA NEGATIVE (NEGATIVE)
[2023-01-22 20:47] VITALS: BP 137/75; PULSE 113
[2023-01-22] MEDS: Heparin Sodium 5,000 Units/ML Vial IVPUSH ONE (20:52)
[2023-01-22] MEDS: Heparin Sodium/0.45% NaCl 500 ML IV SCH (20:54)
== END 2023-01-22 21:15 ==
LOC: FB.ED 16:20
DX: N39.0 Urinary tract infection, site not specified (principal); I21.4 Non-ST elevation (NSTEMI) myocardial infarction; I12.9 Hypertensive chronic kidney disease with stage 1 through stage 4 chronic kidney disease, or unspecified chronic kidney disease; E10.22 Type 1 diabetes mellitus with diabetic chronic kidney disease; N18.32 Chronic kidney disease, stage 3b; E78.5 Hyperlipidemia, unspecified; Z79.82 Long term (current) use of aspirin; Z79.899 Other long term (current) drug therapy; Z20.822 Contact with and (suspected) exposure to COVID-19
CPT/HCPCS: 0241U; 36415; 70450; 71045; 72020; 72072; 72100; 73030; 73080; 73521; 73562; 80053; 81001; 83605; 84484; 85025; 86140; 87040; 87077; 87086; 87088; 87186; 93005; 99285; J0696; J1644; J7030; 93010